=== PATIENT | male | born 1970 | race Hispanic/Latino ===

== ENCOUNTER 2017-01-13 22:47 | Emergency (ER) | payer BC ==
[2017-01-13] MEDS ORDERED: Famotidine 20 MG TAB ONE (23:22)
[2017-01-13] MEDS ORDERED: diphenhydrAMINE 25 MG CAP ONE (23:22)
[2017-01-13] MEDS ORDERED: predniSONE 20 MG TAB ONE (23:22)
== END 2017-01-14 00:05 | disposition home or self-care (01) ==
LOC: ERS 22:47
DX: L50.0 Allergic urticaria (principal)
CPT/HCPCS: 99283; J7506

== ENCOUNTER 2020-02-29 15:46 | Emergency (ER) | payer BC ==
[~2020-02-29 15:46] MED LIST: Iopamidol-370 76% 500 ML 1 ML ONE
[2020-02-29] MEDS ORDERED: Ibuprofen 800 MG TAB ONE (16:02)
[2020-02-29] MEDS ORDERED: Acetaminophen 500 MG TAB ONE (16:02)
[2020-02-29 16:58] LABS: #Lymphocytes 0.6 thou/uL (1.20-3.40); #Monocytes 0.5 thou/uL (0.11-0.59); #Neutrophils 9.9 thou/uL (1.40-6.50); %Basophils 0.1 % (0.0-1.0); %Eosinophils 0.3 % (0.0-10.0); %Lymphocytes 5.2 % (21.0-51.0); %Monocytes 4.5 % (0.0-10.0); %Neutrophils 89.9 % (42.0-75.0); Hemoglobin 13.4 g/dL (14.0-18.0); Mean Corpuscular Volume 88.4 fL (78.0-98.0); Mean Platelet Volume 7.4 fL (7.4-10.4); Platelet Count 217 thou/uL (130-400); RBC Distribution Width 12.2 % (11.5-14.5); Red Blood Cell (RBC) Count 4.46 mill/uL (4.70-6.10)
--- NOTE | 2020-02-29 17:05 | RAD ---
PORTABLE CHEST: 02/29/20 HISTORY: Shortness of breath, fever. FINDINGS/IMPRESSION: Hazy infiltrates in the peripheral left lung and in the left lower lung. Linear atelectasis in the le ft lung base. No consolidation or significant effusion. Heart and mediastinum unremarkable. Suspicion of hazy infiltrates in the peripheral left lung with some linear atelectatic changes in the left lung base. POS: [facility]
[2020-02-29 17:25] LABS: Anion Gap 12 mmol/L (10-20); BUN (Urea Nitrogen) 12 mg/dL (8.9-20.6); Carbon Dioxide 26 mmol/L (22-29); Chloride 99 mmol/L (98-107); Potassium 4.4 mmol/L (3.5-5.1); Sodium 133 mmol/L (136-145)
[2020-02-29 17:26] LABS: Calc. Creatinine Clearance 0 mL/min (70-130); Calcium 8.2 mg/dL (7.8-10.44); Glucose 131 mg/dL (70-105)
[2020-02-29] MEDS ORDERED: cefTRIAXone\\ROCEPHIN 1 GM VIAL ONE (18:11)
[2020-02-29] MEDS ORDERED: Sodium Chloride 0.9% 100 ML ONE (18:11)
--- NOTE | 2020-02-29 20:12 | CT ---
CTA OF THE THORAX UTILIZING IV CONTRAST, PE PROTOCOL, 3D REFORMATTED IMAGIN02/29/20 INDICATION: History of COVID positive status with fever, chills, bodyaches, shortness of breath. COMPARISON: Prior CT of the chest dated 04/06/06. FINDINGS: No definite central or segmental pulmonary embolus is demonstrated. There are peripheral subpleural a ir space opacities within both lungs suspicious for a pattern seen with multifocal pneumonia related to COVID-19. No definite pathologically enlarged lymph nodes are evident. The heart and thoracic aort a appear within normal limits. The visualized upper abdomen demonstrates normal adrenal glands. The v isualized aspects of the liver appear within normal limits. The spleen is mildly enlarged measuring 1 3 cm. No definite acute osseous abnormality is evident. There is mild degenerative and osteoarthritic change. IMPRESSION: 1. No definite central or segmental pulmonary embolus. 2. Multifocal pneumonia. 3. Mild splenomegaly. POS: BH
--- NOTE | 2020-03-03 15:23 | EKG ---
Test Reason : Blood Pressure : / mmHG Vent. Rate : 110 BPM Atrial Rate : 110 BPM P-R Int : 114 ms QRS Dur : 080 ms QT Int : 322 ms P-R-T Axes : 066 042 048 degrees QTc Int : 435 ms Sinus tachycardia Possible Left atrial enlargement Borderline ECG Confirmed by HINA SHEA, JULIANNE ([id number]), editorial director VASQUEZ DIALLO ([id number]) on 03/03/2020 3:22:41 PM Referred By: Confirmed By:JULIANNE SANTAMARIA MD
== END 2020-02-29 20:45 | disposition home or self-care (01) ==
LOC: ERS 15:46
DX: U07.1 COVID-19 (principal); J12.89 Other viral pneumonia
CPT/HCPCS: 36415; 71045; 71275; 80048; 83605; 84484; 85025; 85379; 93005; 96365; J0696; J3490; Q9967